=== PATIENT | female | born 1945 | race Caucasian/White ===

== ENCOUNTER → 2016-09-05 | Outpatient (CLI) | payer OTHER ==
--- NOTE | 2016-09-05 18:05 | US ---
Limited Right Common Femoral Artery Arterial Evaluation Indication: Right groin pain for 3 years. Technique: Limited right common femoral arterial Doppler evaluation is performed. Findings: The common femoral artery is widely patent. Waveform analysis is normal. There is no pseudo aneurysm. No mass or hematoma. There are small incidental normal-appearing lymph nodes. Impression: Normal arterial evaluation of the right common femoral artery.
== END ==
LOC: CIMAGING 13:30
PROVIDERS: ATTEND Family Medicine
DX: R10.30 Lower abdominal pain, unspecified (principal)

== ENCOUNTER → 2017-02-25 | Outpatient (CLI) | payer OTHER | LOC: FIMAGING 15:25 | PROVIDERS: ATTEND Internal Medicine Endocrinology, Diabetes & Metabolism | DX: Z85.850 Personal history of malignant neoplasm of thyroid (principal); Z90.89 Acquired absence of other organs ==

== ENCOUNTER → 2017-04-24 | Outpatient (CLI) | payer OTHER ==
[~2017-04-24] MED LIST: IOPAMIDOL (ISOVUE-300) 100 ML BTL ONE
== END ==
LOC: FIMAGING 04-12 15:39
PROVIDERS: ATTEND Family Medicine
DX: K57.30 Diverticulosis of large intestine without perforation or abscess without bleeding (principal); K83.8 Other specified diseases of biliary tract; K44.9 Diaphragmatic hernia without obstruction or gangrene; K59.00 Constipation, unspecified; N83.202 Unspecified ovarian cyst, left side; M51.37 Other intervertebral disc degeneration, lumbosacral region
CPT/HCPCS: Q9967

== ENCOUNTER 2017-08-06 17:14 | Emergency (ER) | payer OTHER ==
[2017-08-06] MEDS ORDERED: NS 1,000 ML IV ONE (18:04)
[2017-08-06 18:15] LABS: PLATELET COUNT 104 10^3/uL (150-400)
--- NOTE | 2017-08-06 18:36 | EDPHY ---
H & P Smoking Status: Never smoked Time Seen by Provider: 08/06/17 17:35 HPI/ROS: CHIEF COMPLAINT: Abdominal pain, back pain, headache HISTORY OF PRESENT ILLNESS: 72-year-old female presents to the emergency department by private vehicle with abdominal pain for last 2-3 days. The patient has a history of diverticulitis diagnosis April. Treated as an outpatient with oral antibiotics. She feels that this pain is very similar. She has pain in her right lower quadrant of her abdomen. She is also having some upper back pain as well. She has a chronic history of migraine headaches which she typically has on a weekly basis. She has seen numerous neurologist for this. She face that she has a left-sided headache which is typical for her migraine headache. She feels that this is a typical migraine headache for her. She feels nauseous. She vomited. She is photophobic. All of this is common with her migraine headaches. She denies any reported trauma. No known fevers or chills. No chest pain or difficulty breathing. REVIEW OF SYSTEMS: Constitutional: No fever, no chills. Eyes: No double or blurry vision. ENT: No sore throat. Respiratory: No cough, no shortness of breath. Cardiac: No chest pain. Gastrointestinal: Abdominal pain, vomiting. No diarrhea. Genitourinary: No dysuria. Musculoskeletal: Upper back pain. No neck pain Skin: No rashes. Neurological: headache. (Sagrario Graff) Past Medical/Surgical History: Migraine headaches, diverticulitis (Prerna,Sagrario M) Social History: and lives in [place] (Prerna,Sagrario M) Physical Exam: General Appearance: Alert, no distress. Afebrile. Eyes: Pupils equal and round. Extraocular motions are all intact. ENT: Mouth: Mucous membranes moist. Respiratory: No wheezing, rhonchi, or rales, lungs are clear to auscultation. Cardiovascular: Regular rate and rhythm. Gastrointestinal: Abdomen is soft. Tenderness with palpation in the right and left lower quadrant. Also mild tenderness with palpation in the epigastric area. There is no rebound, guarding or masses noted. No CVA tenderness bilaterally. Neurological: Alert and oriented x 3, cranial nerves II through XII grossly intact Skin: Warm and dry, no rashes. Musculoskeletal: Nontender to palpate along the cervical, thoracic or lumbar spine. Neck is supple. Extremities: Full range of motion and no peripheral edema. Psychiatric: Patient is oriented X 3, there is no agitation. (Sagrario Graff) Constitutional: Initial Vital Signs Temperature (C) 37.2 C 08/06/17 17:15 Heart Rate 98 08/06/17 17:15 Respiratory Rate 18 08/06/17 17:15 Blood Pressure 123/84 H 08/06/17 17:15 O2 Sat (%) 97 08/06/17 17:15 O2 Delivery Mode Room Air Allergies/Adverse Reactions: aspartame [artifical sweetener] Allergy (Verified 08/06/17 17:20) legumes Allergy (Verified 08/06/17 17:20) peanut Allergy (Verified 08/06/17 17:20) shellfish derived Allergy (Verified 08/06/17 17:20) soy Allergy (Verified 08/06/17 17:20) artificial colors Allergy (Uncoded 08/06/17 17:20) chemicals Allergy (Uncoded 08/06/17 17:20) citris Allergy (Uncoded 08/06/17 17:20) IV dye Allergy (Uncoded 08/06/17 17:20) preservatives Allergy (Uncoded 08/06/17 17:20) Home Medications: Medication Instructions Recorded Amoxicillin/Clavulanate Pot 875 mg PO BID #20 tab 08/06/17 [Augmentin 875 mg tab] Levothyroxine [Synthroid 100 mcg 100 mcg PO DAILY06 08/06/17 (*)] Oseltamivir Phosphate [Tamiflu] 75 mg PO BID #10 cap 08/06/17 Sumatriptan Succinate [Imitrex] 4 mg SQ 08/06/17 Medical Decision Making - Diagnostics Imaging: Discussed imaging studies w/ call manager Radiologist - Diagnostics Imaging Results: Imaging Impressions Abdomen CT 08/06/17 18:57 Impression: 1. Cholecystectomy. 2. Mild sigmoid diverticulitis. 3. 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 4. Normal appendix. 5. 2-cm left ovarian cyst, unchanged. 6. Moderately large hiatal hernia. I telephoned results to Sagrario Graff PA-C, at 2050 hours. ED Course/Re-evaluation: Sagrario and I discussed this patient at length. She has mild uncomplicated diverticulitis which can safely be treated as an outpatient. She already is a patient of Dr. Edi Galdamez and he is treated her in the past with Augmentin will use the same antibiotic. She also has body aches which could certainly be from the systemic illness from her diverticular disease or from the fact that she is positive for influenza type A. She is stable. She will be followed closely as an outpatient. (Jacob Christian) 72-year-old female presents with headache, back pain and abdominal pain. Patient states that she feels that this is a typical migraine headache for her. She was given migraine cocktail of Toradol, Decadron, Phenergan and Benadryl. She also received IV normal saline. Complete blood cell count was normal. Chemistries are unremarkable. Influenza was positive. CT abdomen pelvis reveals normal appendix. Mild sigmoid diverticulitis. No evidence of perforation or abscess. This was reported to me by Dr. Fountain at 8: 50 p.m.. The patient has had diverticulitis in the past and has been treated with Augmentin. She was given a prescription for the same and told to follow up with her kelly machine operator, Dr. Edi Galdamez. Patient also received 75 mg of Tamiflu p.o. and 1 Percocet. Patient was feeling better although she was still feeling nauseous. She did vomit 1 time in the emergency department upon discharge. The patient was advised that she should stay in the hospital so that she could receive further treatment including IV antibiotics, however the patient declined. The patient understands that if she continues vomiting she should return to the emergency department immediately. She also understands that she should return if she develops fever, worsening abdominal pain or any other concerns. Patient verbalized understanding and agreed. Patient was given Zofran ODT take-home pack. She was given prescription for additional Augmentin Tamiflu. Case was discussed with Dr. Jacob Christian, secondary supervising physician, who did not directly evaluate the patient but agrees with treatment and plan. (Sagrario Graff) Differential Diagnosis: Including but not limited to diverticulitis, acute appendicitis, bowel obstruction, perforation, migraine headache, sepsis (Sagrario Graff) - Data Points Laboratory Results: Laboratory Results 08/06/17 18:05 08/06/17 18:05 08/06/17 08/06/17 08/06/17 20:55 20:05 18:05 WBC RBC Hgb Hct MCV MCH MCHC RDW Plt Count MPV Neut % (Auto) Lymph % (Auto) [place] % (Auto) Eos % (Auto) Baso % (Auto) Nucleat RBC Rel Count Absolute Neuts (auto) Absolute Lymphs (auto) Absolute Monos (auto) Absolute Eos (auto) Absolute Basos (auto) Absolute Nucleated RBC Immature Gran % Immature Gran # Sodium 142 mEq/L mEq/L (134-144) Potassium 4.2 mEq/L mEq/L (3.5-5.2) Chloride 107 mEq/L mEq/L (97-110) Carbon Dioxide 21 mEq/l L mEq/l (22-31) Anion Gap 14 mEq/L mEq/L (8-16) BUN 9 mg/dL mg/dL (7-23) Creatinine 0.9 mg/dL mg/dL (0.6-1.0) Estimated GFR > 60 Glucose 105 mg/dL H mg/dL (70-100) Calcium 9.3 mg/dL mg/dL (8.5-10.4) Urine Color YELLOW Urine Appearance CLEAR Urine pH 5.0 (5.0-7.5) Ur Specific [place] > 1.035 H (1.002-1.030) Urine Protein NEGATIVE (NEGATIVE) Urine Ketones 1+ H (NEGATIVE) Urine Blood 2+ H (NEGATIVE) Urine Nitrate NEGATIVE (NEGATIVE) Urine Bilirubin NEGATIVE (NEGATIVE) Urine Urobilinogen NEGATIVE EU EU (0.2-1.0) Ur Leukocyte Esterase NEGATIVE (NEGATIVE) Urine RBC 5-10 /hpf H /hpf (0-3) Urine WBC 1-3 /hpf /hpf (0-3) Ur Epithelial Cells TRACE /lpf /lpf (NONE-1+) Urine Mucus TRACE /lpf /lpf (NONE-1+) Urine Glucose NEGATIVE (NEGATIVE) Nasal Influenza A PCR FLU A DETECTED H (NEGATIVE) Nasal Influenza B PCR NEGATIVE FOR FLU B (NEGATIVE) 08/06/17 18:05 WBC 3.00 10^3/uL L 10^3/uL (3.80-9.50) RBC 5.25 10^6/uL 10^6/uL (4.18-5.33) Hgb 16.0 g/dL g/dL (12.6-16.3) Hct 45.9 % % (38.0-47.0) MCV 87.4 fL fL (81.5-99.8) MCH 30.5 pg pg (27.9-34.1) MCHC 34.9 g/dL g/dL (32.4-36.7) RDW 14.2 % % (11.5-15.2) Plt Count 104 10^3/uL L 10^3/uL (150-400) MPV 10.6 fL fL (8.7-11.7) Neut % (Auto) 73.4 % % (39.3-74.2) Lymph % (Auto) 16.0 % % (15.0-45.0) [place] % (Auto) 10.0 % % (4.5-13.0) Eos % (Auto) 0.0 % L % (0.6-7.6) Baso % (Auto) 0.3 % % (0.3-1.7) Nucleat RBC Rel Count 0.0 % % (0.0-0.2) Absolute Neuts (auto) 2.20 10^3/uL 10^3/uL (1.70-6.50) Absolute Lymphs (auto) 0.48 10^3/uL L 10^3/uL (1.00-3.00) Absolute Monos (auto) 0.30 10^3/uL 10^3/uL (0.30-0.80) Absolute Eos (auto) 0.00 10^3/uL L 10^3/uL (0.03-0.40) Absolute Basos (auto) 0.01 10^3/uL L 10^3/uL (0.02-0.10) Absolute Nucleated RBC 0.00 10^3/uL 10^3/uL (0-0.01) Immature Gran % 0.3 % % (0.0-1.1) Immature Gran # 0.01 10^3/uL 10^3/uL (0.00-0.10) Sodium Potassium Chloride Carbon Dioxide Anion Gap BUN Creatinine Estimated GFR Glucose Calcium Urine Color Urine Appearance Urine pH Ur Specific [place] Urine Protein Urine Ketones Urine Blood Urine Nitrate Urine Bilirubin Urine Urobilinogen Ur Leukocyte Esterase Urine RBC Urine WBC Ur Epithelial Cells Urine Mucus Urine Glucose Nasal Influenza A PCR Nasal Influenza B PCR Medications Given: Discontinued Medications Amoxicillin/Clavulanate Potassium (Augmentin 875mg) 875 mg PO EDNOW ONE PRN Reason: Protocol Stop: 08/06/17 21:11 Last Admin: 08/06/17 21:17 Dose: 875 mg Dexamethasone (Decadron Injection) 10 mg IVP EDNOW ONE Stop: 08/06/17 19:29 Last Admin: 08/06/17 19:50 Dose: 10 mg Diphenhydramine HCl (Benadryl Injection) 25 mg IVP EDNOW ONE Stop: 08/06/17 19:29 Last Admin: 08/06/17 19:50 Dose: 25 mg Fentanyl (Sublimaze) 50 mcg IVP EDNOW ONE Stop: 08/06/17 18:50 Last Admin: 08/06/17 18:55 Dose: 50 mcg Sodium Chloride (Ns) 1,000 mls @ 0 mls/hr IV ONCE ONE PRN Reason: Wide Open Stop: 08/06/17 18:05 Last Admin: 08/06/17 18:10 Dose: 1,000 mls Ketorolac Tromethamine (Toradol) 15 mg IVP EDNOW ONE Stop: 08/06/17 19:29 Last Admin: 08/06/17 19:50 Dose: 15 mg Metoclopramide HCl (Reglan Injection) 10 mg IVP EDNOW ONE Stop: 08/06/17 19:29 Last Admin: 08/06/17 20:01 Dose: Not Given Oseltamivir Phosphate (Tamiflu) 75 mg PO EDNOW ONE Stop: 08/06/17 21:12 Last Admin: 08/06/17 21:17 Dose: 75 mg Oxycodone/Acetaminophen (Percocet 5/325) 1 tab PO EDNOW ONE Stop: 08/06/17 21:12 Last Admin: 08/06/17 21:17 Dose: 1 tab Promethazine HCl (Phenergan) 12.5 mg IVP ONCE ONE Stop: 08/06/17 20:02 Last Admin: 08/06/17 20:02 Dose: 12.5 mg Departure - Departure Disposition: Home, Routine, Self-Care Clinical Impression: Diverticulitis, Influenza A Migraine headache Qualifiers: Migraine type: unspecified Status migrainosus presence: without status migrainosus Intractability: not intractable Qualified Code(s): G43.909 - Migraine, unspecified, not intractable, without status migrainosus Condition: Good Instructions: Diverticulitis (ED), Migraine Headache (ED), Influenza (ED) Additional Instructions: Augmentin 875 mg twice daily for 10 days. Tamiflu 75 mg twice daily for 5 days for influenza. Adult Pain & Fever Control: We recommend Acetaminophen (Tylenol) and Ibuprofen (Motrin,Advil) for pain and fever control. When fever is high or pain severe, both drugs can be used at the same time, but at different intervals. Please note the time differences. Your dose is: Acetaminophen 1000mg every 4 to 6 hours Ibuprofen 600mg every 8 hours with food Note: do not take Acetaminophen with Hydrocodone (Vicodin, Lortab) or Oycodone (Percocet). These medications also contain Acetaminophen. No more than 3000mg of Acetaminophen should be taken in 24 hours (for an adult). Referrals: Eron Witt MD [Primary Care Provider] - 2-3 days without fail Edi Galdamez MD [Medical Doctor] - 2-3 days without fail Prescriptions: Amoxicillin/Clavulanate Pot [Augmentin 875 mg tab] 875 mg PO BID #20 tab Oseltamivir Phosphate [Tamiflu] 75 mg PO BID #10 cap
[2017-08-06] MEDS ORDERED: fentaNYL 100 MCG/2 ML INJ IVP ONE (18:49)
[2017-08-06] MEDS ORDERED: IOPAMIDOL (ISOVUE-300) 100 ML BTL ONE (18:58)
[2017-08-06] MEDS ORDERED: KETOROLAC 30 MG/1 ML SDV IVP ONE (19:28)
[2017-08-06] MEDS ORDERED: METOCLOPRAMIDE 10 MG/2 ML VIAL IVP ONE (19:28)
[2017-08-06] MEDS ORDERED: DEXAMETHASONE 10 MG/ML VIAL IVP ONE (19:28)
[2017-08-06] MEDS ORDERED: PROMETHAZINE HCL 25 MG/ML INJ ONE (20:00)
[2017-08-06] MEDS ORDERED: PROMETHAZINE HCL 25 MG/ML INJ IVP ONE (20:01)
[2017-08-06] MEDS ORDERED: AMOXICILLIN/CLAVULANATE POT 875/125 MG TAB PO ONE (21:10)
[2017-08-06] MEDS ORDERED: OSELTAMIVIR PHOSPHATE 75 MG CAP PO ONE (21:11)
[2017-08-06] MEDS ORDERED: OXYCODONE/APAP 5/325 TAB PO ONE (21:11)
[2017-08-06] MEDS ORDERED: ONDANSETRON 4MG PREPACK#2 BTL TAKEHOME ONE (22:34)
[2017-08-06 23:04] VITALS: BP 126/79; PULSE 69; RESP 19; TEMP 98.4; O2SAT 94
== END 2017-08-06 23:11 | disposition home or self-care (01) ==
DX: K57.80 Diverticulitis of intestine, part unspecified, with perforation and abscess without bleeding (principal); J10.1 Influenza due to other identified influenza virus with other respiratory manifestations; G43.909 Migraine, unspecified, not intractable, without status migrainosus; Z91.010 Allergy to peanuts
CPT/HCPCS: 96374; J1100; J1200; J1885; J2550; J3010; Q9967

== ENCOUNTER → 2017-08-16 | Outpatient (CLI) | payer OTHER | LOC: FIMAGING 13:58 | PROVIDERS: ATTEND Family Medicine | DX: N83.202 Unspecified ovarian cyst, left side (principal) ==

== ENCOUNTER → 2017-12-20 | Outpatient (CLI) | payer OTHER | LOC: FIMAGING 13:39 | DX: Z13.820 Encounter for screening for osteoporosis (principal); M81.0 Age-related osteoporosis without current pathological fracture; Z79.899 Other long term (current) drug therapy; Z85.850 Personal history of malignant neoplasm of thyroid; Z78.0 Asymptomatic menopausal state; Z90.09 Acquired absence of other part of head and neck ==

== ENCOUNTER → 2018-04-29 | Outpatient (CLI) | payer OTHER | LOC: FIMAGING 15:44 | PROVIDERS: ATTEND Internal Medicine Endocrinology, Diabetes & Metabolism | DX: R59.0 Localized enlarged lymph nodes (principal); Z85.850 Personal history of malignant neoplasm of thyroid; Z90.89 Acquired absence of other organs ==